=== PATIENT | male | born 1995 | race Caucasian/White ===

== ENCOUNTER 2017-01-03 13:29 | Emergency (ER) | payer BC ==
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
[2017-01-03] MEDS ORDERED: TORAdol 30 mg Injection IM ONE (14:26)
[2017-01-03] MEDS ORDERED: TORAdol 30 mg Injection ONE (14:35)
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
[2017-01-03 15:34] VITALS: O2SAT 98
[2017-01-03 15:46] VITALS: BP 125/72; PULSE 76
== END 2017-01-03 15:45 | disposition home or self-care (01) ==
LOC: ED 13:29
DX: L03.116 Cellulitis of left lower limb (principal)
CPT/HCPCS: 73630; 96372; 99283; J1885

== ENCOUNTER 2018-05-26 16:00 | Emergency (ER) | payer BC ==
[2018-05-26 16:23] VITALS: BP 127/83; PULSE 89; O2SAT 100
[2018-05-26] MEDS ORDERED: Sodium Chloride 0.9% 1000 ML 1,000 ML IV STA (16:55)
[2018-05-26] MEDS ORDERED: Vancomycin 1GM/ Ns 250ML*** 1 GM/250 ML IVPB IV ONE (16:56)
[2018-05-26] MEDS ORDERED: Adacel Vial IM ONE ×2 (16:57→17:19)
[2018-05-26] MEDS ORDERED: Vancomycin 1GM/ Ns 250ML*** 0 ML IV ONE (17:18)
[2018-05-26] MEDS ORDERED: Sodium Chloride 0.9% 1000 ML 0 ML ONE (17:18)
--- NOTE | 2018-05-26 17:45 | ERPHSYRPT ---
- History of Present Illness Time Seen by Provider: 05/26/18 16:20 Source: patient Exam Limitations: clinical condition Patient Subjective Stated Complaint: states got a spider bite two weeks ago on right knee. states is now very tender and more red and swollen. states he tried to open it but there was no drainage. Triage Nursing Assessment: ambulated to room per self. skin w/d, color normal, resp easy. large red, raised area noted to right knee. small amt drainage noted. tender to touch. Physician History: PATIENT STATES HE SUSTAINED A SPIDER BITE TO BELOW HIS RIGHT KNEE 3 WEEKS AGO AND HAS PROGRESSIVE SWELLING, REDNESS AND DRAINAGE. DENIES PAIN, FEVER OR CHILLS. Method of Injury: other (INSECR BITE) Occurred: other (3 WEEKS AGO) Severity of Pain-Max: none Severity of Pain-Current: none Lower Extremities Pain: knee: right Modifying Factors: Improves With: nothing Associated Symptoms: other (DRAINAGE) Allergies/Adverse Reactions: No Known Drug Allergies Allergy (Unverified 01/03/17 13:40) Home Medications: No Reportable Medications [No Reported Medications] 05/26/18 [History] Hx Tetanus, Diphtheria Vaccination/Date Given: No Hx Influenza Vaccination/Date Given: No Hx Pneumococcal Vaccination/Date Given: No - Review of Systems Constitutional: No Symptoms Musculoskeletal: Other (SWELLING, DRAINAGE BELOW RIGHT KNEE) - Past Medical History Pertinent Past Medical History: No Psycho-Social History: Depression - Past Surgical History Past Surgical History: No Other Surgical History: foreign body removed--post head (bb) - Social History Smoking Status: Current every day smoker How long have you smoked: 6 Exposure to second hand smoke: No Drug Use: marijuana Patient Lives Alone: No - Nursing Vital Signs Nursing Vital Signs: Initial Vital Signs Temperature 98.8 F 05/26/18 16:08 Pulse Rate 89 05/26/18 16:08 Respiratory Rate 16 05/26/18 16:08 Blood Pressure 127/83 05/26/18 16:08 O2 Sat by Pulse Oximetry 100 05/26/18 16:08 Pain Scale Pain Intensity 4 - Physical Exam General Appearance: no apparent distress Knees Exam: right knee: swelling (FURUNCLE 1.5CM X 1CM WITH CENTRAL CORE PUNCTURE WOUND WITH DRAINAGE SURROUNDING ERYTHERMA 4CM) Foot Exam: right foot: other (RIGHT PEDIS PULSE 2+) SpO2 Interpretation: normal SpO2: 100 Oxygen Delivery: Room Air Ordered Tests: Active Orders 24 hr Category Date Time Status Wound Care STAT Care 05/26/18 16:55 Active BLOOD CULTURE Stat Lab 05/26/18 17:22 Received CBC W DIFF Stat Lab 05/26/18 17:15 Received Medication Summary Generic Name Dose Route Start Last Admin Trade Name Freq PRN Reason Stop Dose Admin Sodium Chloride 1,000 mls @ 500 mls/hr 05/26/18 16:55 05/26/18 17:28 Sodium Chloride 0.9% 1000 Ml IV 05/26/18 18:54 Not Given .Q2H STA Vancomycin HCl 1 gm in 250 mls @ 167 mls/hr 05/26/18 16:56 05/26/18 17:28 Vancomycin 1gm/ Ns 250ml IV 05/26/18 18:25 Not Given STAT ONE Discontinued Medications Generic Name Dose Route Start Last Admin Trade Name Freq PRN Reason Stop Dose Admin Diphtheria/Tetanus/Acell Pertussis 0.5 ml 05/26/18 16:57 05/26/18 17:23 Adacel Vial IM 05/26/18 16:58 0.5 ml .ONCE ONE Administration Diphtheria/Tetanus/Acell Pertussis Confirm 05/26/18 17:19 Adacel Vial Administered 05/26/18 17:20 Dose 0.5 ml IM .STK-MED ONE Sodium Chloride Confirm 05/26/18 17:18 Sodium Chloride 0.9% 1000 Ml Administered 05/26/18 17:19 Dose 1,000 mls @ ud .ROUTE .STK-MED ONE Vancomycin HCl Confirm 05/26/18 17:18 Vancomycin 1gm/ Ns 250ml Administered 05/26/18 17:19 Dose 250 mls @ ud IV .STK-MED ONE - Progress Progress Note: 05/26/18 17:48 PATIENT REFUSED IV FLUIDS, VANCOMYCIN 1GM IVPB, ADMINISTERED ADACELE 0.5MG IM 05/26/18 17:49 REFUSED TREATMENT AND WALKED OUT EMERGENCY Counseled pt/family regarding: diagnosis, need for follow-up - Departure Time of Disposition: 17:45 Departure Disposition: AMA Clinical Impression: RIGHT KNEE FURUNCLE Condition: Stable Critical Care Time: No Referrals: MONICA ISIDRO [Primary Care Provider] - Additional Instructions: FOLLOWUP WITH YOUR PRIMARY CARE PROVIDER
[2018-05-26 17:47] LABS: BASOPHIL % 0.2 % (0.0-0.4); Basophil (Absolute #) 0.02 (0-0.4); Eosinophil (Absolute #) 0.34 (0-0.5); Granulocyte Absolute (ANC) 8.51 (1.4-6.9); Granulocytes % 74.4 % (36.0-66.0); Hemoglobin 16.1 gm/dl (12.5-18.0); Lymphocyte (Absolute #) 1.55 (1.0-4.6); Lymphocytes % 13.6 % (24.0-44.0); Mean Cell Volume 91.1 fl (78-100); Mean Corpuscular Hemoglobin 30.6 pg (26-32); Mean Corpuscular Hgb Concent. 33.5 g/dl (32-36); Mean Platelet Volume 9.5 fl (6-9.5); Monocyte (Absolute #) 1.01 (0.0-1.3); Monocytes % 8.8 % (0.0-12.0); Platelet Count 257 K/mm3 (150-450); Red Blood Count 5.27 M/mm3 (4.1-5.6); White Blood Count 11.4 K/mm3 (4.0-10.5)
== END 2018-05-26 17:45 | disposition left against medical advice (07) ==
LOC: ED 16:00
DX: L02.425 Furuncle of right lower limb (principal)
CPT/HCPCS: 36415; 85025; 87040; 90471; 90715; 99283; J3370